=== PATIENT | male | born 1965 | race Caucasian/White ===

== ENCOUNTER 2017-01-15 02:30 | Inpatient (IN) | payer SELFPAY ==
[~2017-01-15] VITALS: Ht 190.5 cm; Wt 104.4 kg
[2017-01-15 02:30] VITALS: BP 118/57; PULSE 62; RESP 17; TEMP 97.6; O2SAT 97
[2017-01-15] MEDS ORDERED: ACETAMINOPHEN 325 MG TAB PO PRN (03:15)
[2017-01-15] MEDS ORDERED: MAGNESIUM HYDROXIDE SUSP 30 ML CUP PO PRN (03:15)
[2017-01-15] MEDS ORDERED: ALUMINUM/MAGNESIUM/SIMETH 30 ML CUP PO PRN (03:15)
[2017-01-15] MEDS ORDERED: LORazepam 1 MG TAB PO PRN (03:15)
[2017-01-15] MEDS ORDERED: LORazepam 2 MG/ML VIAL IM PRN (03:15)
[2017-01-15] MEDS ORDERED: NICOTINE 21 MG/24 HR PATCH T-DERMAL SCH (09:00)
--- NOTE | 2017-01-15 11:08 | HHI.HP ---
Provisional Diagnosis Admission Date Jan 15, 2017 at 02:30 [place]. Malingering. Certification of Person's Competence To Provide Express and Informed Consent I have personally examined Herbert Martinez , a person being served at [facility] on, Jan 15, 2017 11:05. Express and informed consent means consent voluntarily given in writing, by a competent person, after sufficient explanation and disclosure of the subject matter involved to enable the person to make a knowing and willful decision without any element of force, fraud, deceit, duress, or other form of constraint or coercion. This person is 18 years of age or older, is not now known to be incompetent to consent to treatment with a guardian advocate, and does not have a health care surrogate or proxy currently making medical treatment decisions. I have found this person to be one of the following: [X] Competent to provide express and informed consent, as defined above, for voluntary admission to this facility and is competent to provide express and informed consent for treatment. He/she has the consistent capacity to make well reasoned, willful, and knowing decisions concerning his or her medical or mental health treatment. The person fully and consistently understands the purpose of the admission for examination/placement and is fully capable of personally exercising all rights [place] Incompetent to provide express and informed consent to voluntary admission, and this is incompetent to provide express and informed consent to treatment. The person must be transferred to involuntary status and a petition for a guardian advocate filed with the Circuit Court. [] Refusing to provide express and informed consent to voluntary admission but is competent to provide express and informed consent for treatment. The person must be discharged or transferred to involuntary status. Form shall be completed within 24 hours of a person's arrival at the receiving facility and filed in the clinical record of each person: 1. Admitted on a voluntary basis 2. Permitted to provide express and informed consent to his/her own treatment 3. Allowed to transfer from involuntary to voluntary status 4. Prior to permitting a person to consent to his or her own treatment after having been previously found incompetent to consent to treatment. History of Present Illness Capacity: Has Capacity HPI Patient known to staff on 2700. History of alcoholism. No longer showing signs or symptoms that he did at outside facility. [place] to have been malingering mental illness last night. Review of Systems Except as stated in HPI: all other systems reviewed are Neg Past Psych History Psychological trauma history Denied Violence risk - others (6 mos) Minimal Violence risk - self (6 mos) Moderate Substance Abuse History Drugs/Alcohol past 12 months History of alcoholism. Past Family Social History Coded Allergies: lemon (Verified Allergy, Severe, 01/15/17) naproxen (Verified Allergy, Severe, 01/15/17) Current Medications Medications (Trade) Dose Ordered Sig/Yaritza Route Start Time Stop Time Status Last Admin (Ativan) 1 mg Q6H PRN PO 01/15/17 03:15 (Ativan Inj) 1 mg Q6H PRN IM 01/15/17 03:15 (Tylenol) 650 mg Q4H PRN PO 01/15/17 03:15 (Milk Of Magnesia Liq) 30 ml DAILY PRN PO 01/15/17 03:15 (Mag-Al Plus Susp Liq) 30 ml Q6H PRN PO 01/15/17 03:15 (Habitrol 21 Mg Patch.24 Hr) 1 patch DAILY T-DERMAL 01/15/17 09:00 01/15/17 09:02 Miscellaneous Information 1 HS T-DERMAL 01/15/17 21:00 (Flu (Quadrivalent) Vaccine Inj) 0.5 ml ONCE ONCE IM 01/16/17 09:00 01/16/17 09:01 Family Psych History Denied Social History Unemployed Patient's Strengths (min. 2) Verbal and has access to healthcare. Physical Exam GENERAL: SKIN: Warm and dry. HEAD: Normocephalic. EYES: No scleral icterus. No injection or drainage. NECK: Supple, trachea midline. No JVD or lymphadenopathy. CARDIOVASCULAR: Regular rate and rhythm without murmurs, gallops, or rubs. RESPIRATORY: Breath sounds equal bilaterally. No accessory muscle use. GASTROINTESTINAL: Abdomen soft, non-tender, nondistended. MUSCULOSKELETAL: No cyanosis, or edema. BACK: Nontender without obvious deformity. No CVA tenderness. Vital Signs Vital Signs Date Time Temp Pulse Resp B/P (MAP) Pulse Ox O2 Delivery O2 Flow Rate FiO2 01/15/17 02:30 97.6 62 17 118/57 (77) 97 Mental Status Examination Appearance: Appropriate Consciousness: Alert Orientation: x4 Motor Activity: Normal gait Speech: Unremarkable Language: Adequate Fund of Knowledge: Adequate Attention and Concentration: Adequate Memory: Unremarkable Mood: Appropriate Affect: Appropriate Thought Process & Associations: Intact Thought Content: Appropriate Hallucination Type: None Delusion Type: None Suicidal Ideation: No Suicidal Plan: No Suicidal Intention: No Homicidal Ideation: No Homicidal Plan: No Homicidal Intention: No Insight: Adequate Judgment: Adequate Assessment & Plan Problem List: (1) Malingering ICD Codes: Z76.5 - Malingerer [conscious simulation] Assessment & Plan Estimated LOS: days plan discharge after a period of observation (completed) .Spoke to 3 techs who pt. recognized and all techs providing evidence of pt's malingering. Merritt Peters MD Jan 15, 2017 11:08
[2017-01-15] MEDS ORDERED: REMOVE OLD NICOTINE PATCH T-DERMAL SCH (21:00)
[2017-01-16] MEDS ORDERED: INFLUENZA VIRUS VACCINE (QUADRIVALENT) 0.5 ML SYR IM ONE (09:00)
== END 2017-01-15 13:20 | disposition home or self-care (01) | DRG 951 ==
LOC: H270 02:30
PROVIDERS: ADMIT Psychiatry & Neurology Psychiatry; ATTEND Psychiatry & Neurology Psychiatry
DX: Z76.5 Malingerer [conscious simulation] (principal); F10.20 Alcohol dependence, uncomplicated